=== PATIENT | male | born 1990 | race Hispanic/Latino ===

== ENCOUNTER 2018-07-24 12:03 | Emergency (ER) | payer OTHER ==
[~2018-07-24] VITALS: Ht 170.2 cm; Wt 75.3 kg
[2018-07-24] MEDS ORDERED: ALBUTEROL0.63 MG/3 (13:28)
== END 2018-07-24 12:45 | disposition home or self-care (01) ==
LOC: FSED 12:03
DX: R50.9 Fever, unspecified (principal); R05 Cough; R51 Headache; J00 Acute nasopharyngitis [common cold]
CPT/HCPCS: 99283